=== PATIENT | female | born 1970 ===

== ENCOUNTER 2019-06-21 21:35 | Emergency (ER) | payer OTHER ==
[2019-06-21] MEDS ORDERED: LIDOCAINE VISCOUS 2% SOLN 15 ML UDC ONE (22:10)
[2019-06-21] MEDS ORDERED: MAGNE/ALUM HYDROXD 30 ML UCUP ONE (22:10)
[2019-06-21 22:44] LABS: ALT/SGPT 60 U/L (12-78); AST/SGOT 37 U/L (15-37); Albumin 3.8 g/dL (3.4-5.0); Alkaline Phosphatase 87 U/L (45-117); BUN Blood Urea Nitrogen 11 mg/dL (7-18); Bicarbonate 32 mmol/L (21-32); Bilirubin Direct < 0.1 mg/dL (0-0.2); Bilirubin Total 0.3 mg/dL (0.2-1.0); Glucose Level 116 mg/dL (74-106); Lipase 124 U/L (73-393); Potassium 4.1 mmol/L (3.5-5.1); Protein, Total 7.7 g/dL (6.4-8.2); Sodium Level 142 mmol/L (136-145); Troponin (Emerg Dept Use Only) < 0.02 ng/mL (0.0-0.045)
[2019-06-21 22:56] LABS: Absolute Lymphocytes (CBC) 2.9 K/uL (0.7-4.9); Basophils % 0.7 % (0-1.3); Hematocrit 35.4 % (36.0-45.0); Lymphocytes % 32.3 % (15.3-44.8); MPV 9.9 fL (7.6-11.3); RBC Red Blood Cell Count 4.12 M/uL (3.86-4.86)
--- NOTE | 2019-06-21 23:33 | ER ---
Nurse's Notes [facility] Name: Karrie Henderson Age: 48 yrs Sex: Female : 1970 Arrival Date: 06/21/2019 Time: 21:37 Bed 20 Private MD: Diagnosis: Epigastric pain Presentation: 06/21 21:39 Presenting complaint: Patient states: "I have a lot of heart burn and its making it aj1 hard to swallow, I've been like this for 2 days" Patient reports that she has taken Nexium, pantoprazole, Alkaseltzer with no relief."Patient reports that she has been belching and having acid coming up. Reports chest pain. Transition of care: patient was not received from another setting of care. Onset of symptoms was June 21, 2019. Risk Assessment: Do you want to hurt yourself or someone else? Patient reports no desire to harm self or others. Initial Sepsis Screen: Does the patient meet any 2 criteria? No. Patient's initial sepsis screen is negative. Does the patient have a suspected source of infection? No. Patient's initial sepsis screen is negative. Care prior to arrival: None. 21:39 Method Of Arrival: Ambulatory aj1 21:39 Acuity: ANUM 3 aj1 Triage Assessment: 21:44 General: Appears in no apparent distress. comfortable, Behavior is calm, cooperative, aj1 appropriate for age. Pain: Complains of pain in mid-sternal area Pain currently is 4 out of 10 on a pain scale. Neuro: Level of Consciousness is awake, alert, obeys commands. Cardiovascular: Patient's skin is warm and dry. Respiratory: Airway is patent Respiratory effort is even, unlabored, Respiratory pattern is regular, symmetrical. 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/A - Irregular menses aj1 Historical: - Allergies: 21:44 No Known Allergies; aj1 - Home Meds: 21:44 bupropion HCl 300 mg Oral Tb24 1 tab once daily [Active]; oxcarbazepine 300 mg oral tab aj1 1 tab 2 times per day [Active]; Nexium 20 mg Oral cpDR 1 cap once daily [Active]; omeprazole 20 mg Oral cpDR 1 cap once daily [Active]; Januvia 100 mg oral tab 1 tab once daily [Active]; glipizide-metformin 5-500 mg oral tab 1 tab 2 times per day [Active]; lisinopril 10 mg Oral tab 1 tab once daily [Active]; - PMHx: 21:44 Depression; Bipolar disorder; Diabetes - IDDM; Sleep Apnea; Hypertension; aj1 - PSHx: 21:44 Hernia repair; multiple abdominal surgeries; aj1 - Immunization history:: Flu vaccine is not up to date. - Social history:: Smoking status: Patient/guardian denies using tobacco. - Ebola Screening: : Patient denies travel to an Ebola-affected area in the 21 days before illness onset. Screenin:38 Abuse screen: Denies threats or abuse. Denies injuries from another. Nutritional wh screening: No deficits noted. Tuberculosis screening: No symptoms or risk factors identified. Fall Risk None identified. Assessment: 22:37 General: Appears in no apparent distress. Behavior is calm, cooperative, appropriate wh for age. Pain: Complains of pain in mid-sternal area Pain radiates to epigastric area Pain currently is 8 out of 10 on a pain scale. Quality of pain is described as burning, Pain began 1 day ago. Neuro: Level of Consciousness is awake, alert, obeys commands, Oriented to person, place, time, situation, Appropriate for age. Cardiovascular: Heart tones S1 S2. Respiratory: Airway is patent Respiratory effort is even, unlabored, Respiratory pattern is regular, symmetrical. GI: Abdomen is flat, non-distended, Bowel sounds present X 4 quads. Abd is soft and non tender X 4 quads. : No signs and/or symptoms were reported regarding the genitourinary system. EENT: No signs and/or symptoms were reported regarding the EENT system. Derm: Skin is intact, is healthy with good turgor, Skin is pink, warm \\T\\ dry. normal. Musculoskeletal: Circulation, motion, and sensation intact. 23:40 Reassessment: Patient appears in no apparent distress at this time. No changes from previously documented assessment. Patient and/or family updated on plan of care and expected duration. Pain level reassessed. Patient is alert, oriented x 3, equal unlabored respirations, skin warm/dry/pink. Patient states feeling better. Patient states symptoms have improved. Vital Signs: 21:44 BP 115 / 61; Pulse 91; Resp 18; Temp 97.8; Pulse Ox 99% on R/A; Weight 106.14 kg (R); 1 Height 5 ft. 0 in. (152.40 cm) (R); Pain 4/10; 22:53 BP 123 / 73; Pulse 85; Resp 18; sh8 23:30 BP 117 / 69; Pulse 66; Resp 95; Pulse Ox 18% ; 21:44 Body Mass Index 45.70 (106.14 kg, 152.40 cm) [facility] ED Course: 21:37 Patient arrived in ED. 3 21:41 Triage completed. aj1 21:44 Arm band placed on. [facility] 21:47 Terrance Beltrán MD is Attending Physician. 21:48 Herminia Calloway is Primary Nurse. 22:10 Inserted saline lock: 22 gauge in right antecubital area, using aseptic technique. Blood collected. 22:38 Patient has correct armband on for positive identification. Bed in low position. Call light in reach. Side rails up X 1. writer on. Pulse ox on. NIBP on. 23:31 Migel Huang MD is Referral Physician. 23:41 No provider procedures requiring assistance completed. IV discontinued, intact, bleeding controlled, No redness/swelling at site. Administered Medications: 22:17 Drug: GI Cocktail without - (Maalox Suspension 30 ml, Lidocaine Liquid 2 % 15 wh ml) Route: PO; 23:42 Follow up: Response: No adverse reaction; Pain is decreased Outcome: 23:32 Discharge ordered by . 23:41 Discharged to home ambulatory. 23:41 Condition: stable 23:41 Discharge instructions given to patient, Instructed on discharge instructions, follow up and referral plans. medication usage, POC Abd Pain Demonstrated understanding of instructions, follow-up care, medications, POC Prescriptions given X 1. 06/22 00:12 Patient left the ED. Signatures: Mayda Diaz, VIC RN [facility] Herminia Calloway Terrance Beltrán MD MD Jose Alberto Fernandez 3 Eva Brewer 8
--- NOTE | 2019-06-21 23:33 | EDPHYS ---
Physician Documentation [facility] Name: Karrie Henderson Age: 48 yrs Sex: Female : 1970 Arrival Date: 06/21/2019 Time: 21:37 Bed 20 Private MD: ED Physician Terrance Beltrán HPI: 06/21 23:22 This 48 yrs old Female presents to ER via Ambulatory with complaints of Heart Burn. gs 23:22 The patient presents with abdominal pain in the epigastric area. Onset: The gs symptoms/episode began/occurred 1 week(s) ago. The symptoms do not radiate. Associated signs and symptoms: Pertinent positives: chest pain, Pertinent negatives: constipation. The symptoms are described as burning. Modifying factors: The symptoms are alleviated by nothing, the symptoms are aggravated by food. Severity of pain: At its worst the pain was moderate in the emergency department the pain is unchanged. The patient has experienced similar episodes in the past, a few times. 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/A - Irregular menses aj1 Historical: - Allergies: 21:44 No Known Allergies; aj1 - Home Meds: 21:44 bupropion HCl 300 mg Oral Tb24 1 tab once daily [Active]; oxcarbazepine 300 mg oral tab aj1 1 tab 2 times per day [Active]; Nexium 20 mg Oral cpDR 1 cap once daily [Active]; omeprazole 20 mg Oral cpDR 1 cap once daily [Active]; Januvia 100 mg oral tab 1 tab once daily [Active]; glipizide-metformin 5-500 mg oral tab 1 tab 2 times per day [Active]; lisinopril 10 mg Oral tab 1 tab once daily [Active]; - PMHx: 21:44 Depression; Bipolar disorder; Diabetes - IDDM; Sleep Apnea; Hypertension; aj1 - PSHx: 21:44 Hernia repair; multiple abdominal surgeries; aj1 - Immunization history:: Flu vaccine is not up to date. - Social history:: Smoking status: Patient/guardian denies using tobacco. - Ebola Screening: : Patient denies travel to an Ebola-affected area in the 21 days before illness onset. ROS: 23:22 All other systems are negative. gs Exam: 23:22 Head/Face: Normocephalic, atraumatic. Eyes: Pupils equal round and reactive to light, gs extra-ocular motions intact. Lids and lashes normal. Conjunctiva and sclera are non-icteric and not injected. Cornea within normal limits. Periorbital areas with no swelling, redness, or edema. ENT: Nares patent. No nasal discharge, no septal abnormalities noted. Tympanic membranes are normal and external auditory canals are clear. Oropharynx with no redness, swelling, or masses, exudates, or evidence of obstruction, uvula midline. Mucous membranes moist. Neck: Trachea midline, no thyromegaly or masses palpated, and no cervical lymphadenopathy. Supple, full range of motion without nuchal rigidity, or vertebral point tenderness. No Meningismus. Chest/axilla: Normal chest wall appearance and motion. Nontender with no deformity. No lesions are appreciated. Cardiovascular: Regular rate and rhythm with a normal S1 and S2. No gallops, murmurs, or rubs. Normal PMI, no JVD. No pulse deficits. Respiratory: Lungs have equal breath sounds bilaterally, clear to auscultation and percussion. No rales, rhonchi or wheezes noted. No increased work of breathing, no retractions or nasal flaring. Back: No spinal tenderness. No costovertebral tenderness. Full range of motion. Skin: Warm, dry with normal turgor. Normal color with no rashes, no lesions, and no evidence of cellulitis. MS/ Extremity: Pulses equal, no cyanosis. Neurovascular intact. Full, normal range of motion. Neuro: Awake and alert, GCS 15, oriented to person, place, time, and situation. Cranial nerves II-XII grossly intact. Motor strength 5/5 in all extremities. Sensory grossly intact. Cerebellar exam normal. Normal gait. 23:22 Constitutional: The patient appears alert, awake. 23:22 Abdomen/GI: Palpation: mild abdominal tenderness, in the epigastric area. Vital Signs: 21:44 BP 115 / 61; Pulse 91; Resp 18; Temp 97.8; Pulse Ox 99% on R/A; Weight 106.14 kg (R); aj1 Height 5 ft. 0 in. (152.40 cm) (R); Pain 4/10; 22:53 BP 123 / 73; Pulse 85; Resp 18; sh8 23:30 BP 117 / 69; Pulse 66; Resp 95; Pulse Ox 18% ; wh 21:44 Body Mass Index 45.70 (106.14 kg, 152.40 cm) aj1 MDM: 21:58 Patient medically screened. gs 23:22 Differential diagnosis: gastroesophageal reflux disease, non-specific abd pain, gs pancreatitis. Data reviewed: vital signs, nurses notes, old medical records, lab test result(s), EKG, radiologic studies. Counseling: I had a detailed discussion with the patient and/or guardian regarding: the historical points, exam findings, and any diagnostic results supporting the discharge/admit diagnosis, the need for outpatient follow up, a structural drafter. Response to treatment: the patient's symptoms have markedly improved after treatment, and as a result, I will discharge patient. 06/21 21:57 Order name: Basic Metabolic Panel; Complete Time: 23:20 gs 06/21 21:57 Order name: CBC with Diff; Complete Time: 23:20 gs 06/21 21:57 Order name: Creatinine for Radiology; Complete Time: 23:20 gs 06/21 21:57 Order name: Hepatic Function; Complete Time: 23:20 gs 06/21 21:57 Order name: Lipase; Complete Time: 23:20 gs 06/21 21:57 Order name: Troponin (emerg Dept Use Only); Complete Time: 23:20 gs 06/21 21:47 Order name: EKG - Nurse/Tech; Complete Time: 21:59 gs 06/21 21:57 Order name: IV Saline Lock; Complete Time: 21:59 gs 06/21 21:57 Order name: Labs collected and sent; Complete Time: 21:59 gs Administered Medications: 22:17 Drug: GI Cocktail without - (Maalox Suspension 30 ml, Lidocaine Liquid 2 % 15 wh ml) Route: PO; 23:42 Follow up: Response: No adverse reaction; Pain is decreased wh Disposition: 06/21/19 23:32 Discharged to Home. Impression: Epigastric pain. - Condition is Stable. - Discharge Instructions: Abdominal Pain, Adult. - Prescriptions for Carafate 100 mg/mL Oral suspension - take 10 milliliter by ORAL route 3 times per day As needed; 250 milliliter. - Medication Reconciliation Form, Thank You Letter, Antibiotic Education, Prescription Opioid Use form. - Follow up: Migel Huang MD; When: 2 - 3 days; Reason: Re-evaluation by your physician. Signatures: Dispatcher [employer] Mayda Sexton RN RN aj1 Herminia Calloway Terrance Beltrán MD MD gs Corrections: (The following items were deleted from the chart) 06/22 00:12 06/21 23:32 06/21/2019 23:32 Discharged to Home. Impression: Epigastric pain. Condition wh is Stable. Forms are Medication Reconciliation Form, Thank You Letter, Antibiotic Education, Prescription Opioid Use. Follow up: Migel Huang; When: 2 - 3 days; Reason: Re-evaluation by your physician. gs
[2019-06-22 01:09] VITALS: TEMP 97.8
[2019-06-22 01:11] VITALS: BP 117/69; O2SAT 18
--- NOTE | 2019-06-22 08:29 | EKG ---
Test Date: 2019-06-21 Test Time: 21:55:02 University Librarian: HAFSA MEASUREMENT RESULTS: Intervals: Rate: 67 OK: 160 QRSD: 92 QT: 428 QTc: 452 [place]: P: 26 OK: 160 QRS: 79 T: 54 INTERPRETIVE STATEMENTS: Normal sinus rhythm Normal ECG No previous ECG available for comparison Electronically Signed On 06-22-19 08:27:35 CDT by Duglas Simpson
== END 2019-06-22 00:12 | disposition home or self-care (01) ==
LOC: ER 21:35
DX: R10.13 Epigastric pain (principal); I10 Essential (primary) hypertension; E11.9 Type 2 diabetes mellitus without complications; F32.9 Major depressive disorder, single episode, unspecified
CPT/HCPCS: 36415; 80048; 80076; 83690; 84484; 85025; 93005; 99284